=== PATIENT | female | born 1945 | race Caucasian/White ===

== ENCOUNTER 2017-09-20 15:46 | Emergency (ER) | payer MEDICARE, OTHER ==
[2017-09-20 15:59] VITALS: BP 157/73
[2017-09-20] MEDS ORDERED: PROPARACAINE 0.5% OPHTH DROPS 15 ML LEFTEYE STA (16:09)
--- NOTE | 2017-09-20 16:11 | ED Physician Documentation ---
History of Present Illness - Stated complaint Stated Complaint: EYELID RASH - Chief complaint Chief Complaint: Heent - Additonal information Additional information: hx from pt 72 female erythema and pain to to inner upper L eyelide X 4 days no trauma no contacts no vision changes called PMD and when she said the redness looked a bit blistered PMD advised to come to ED to rule out shingles Review of Systems Eyes: reports: Other (eyelid erythema) PD PAST MEDICAL HISTORY - Present Medications Home Medications: Ambulatory Orders Medication Instructions Recorded Confirmed Cephalexin [Keflex] 500 mg PO Q6H #28 capsule 09/20/17 Erythromycin Base [Erythromycin] 1 applic OP Q4H #1 tub 09/20/17 - Allergies Allergies/Adverse Reactions: Allergies Allergy/AdvReac Type Severity Reaction Status Date / Time No Known Drug Allergies Allergy Verified 09/20/17 15:53 PD ED PE NORMAL - Vitals Vital signs reviewed: Yes - HEENT HEENT: Other (upper medial L eyelife erythematous and swollen, no clear vesicle certainly no crusting, no rash to rest of dermatome, flourscein exam shows no deindrites) - Cardiac Cardiac: RRR - Respiratory Respiratory: No respiratory distress, Clear bilaterally Results - Vitals Vitals: Vital Signs - 24 hr 09/20/17 15:50 Temperature 36.8 C Heart Rate 71 Respiratory 16 Rate Blood Pressure 157/73 H O2 Saturation 97 Oxygen O2 Source Room air PD MEDICAL DECISION MAKING - Sepsis Event Vital Signs: Vital Signs - 24 hr 09/20/17 15:50 Temperature 36.8 C Heart Rate 71 Respiratory 16 Rate Blood Pressure 157/73 H O2 Saturation 97 Oxygen O2 Source Room air Departure - Departure Disposition: 01 Home, Self Care Clinical Impression: Eyelid cellulitis Qualifiers: Laterality: left Qualified Code(s): H00.036 - Abscess of eyelid left eye, unspecified eyelid Condition: Good Instructions: ED Infec Skin Cellulitis Prescriptions: Cephalexin [Keflex] 500 mg PO Q6H #28 capsule Erythromycin Base [Erythromycin] 1 applic OP Q4H #1 tub Comments: This does not look like shingles I think it is a bacterial infection Try the eye antibiotic ointment. If not better in 2 days or if worsening, start the oral antibiotics. If you develop lesions (blisters and scabs) to any other part of the left side of your head, then that could indicate this is shingles after all and so please come back to the ER for a recheck
== END 2017-09-20 16:48 | disposition home or self-care (01) ==
LOC: ED 15:46
DX: H00.036 Abscess of eyelid left eye, unspecified eyelid (principal)
CPT/HCPCS: 99283

== ENCOUNTER 2018-03-10 11:19 | Emergency (ER) | payer MEDICARE, OTHER ==
[2018-03-10 12:36] LABS: BASOPHILS # (AUTO) 0.1 10^3/uL (0.0-0.1); BASOPHILS % (AUTO) 0.6 %; EOSINOPHILS % (AUTO) 0.1 %; HGB - HEMOGLOBIN 14.8 g/dL (12.0-16.0); LYMPHOCYTES # (AUTO) 0.7 10^3/uL (1.5-3.5); LYMPHOCYTES % (AUTO) 5.6 %; MEAN CORPUSCULAR HEMOGLOBIN 29.3 pg (27.0-31.0); MEAN CORPUSCULAR HGB CONC 33.7 g/dL (32.0-36.0); MEAN CORPUSCULAR VOLUME 87.2 fL (81.0-99.0); MEAN PLATELET VOLUME 9.4 fL (7.9-10.8); MONOCYTES # (AUTO) 0.6 10^3/uL (0.0-1.0); MONOCYTES % (AUTO) 4.5 %; NEUTROPHILS # (AUTO) 11.5 10^3/uL (1.5-6.6); NEUTROPHILS % (AUTO) 89.2 %; PLT - PLATELET COUNT 206 10^3/uL (130-450); RED BLOOD COUNT 5.04 10^6/uL (4.20-5.40); RED CELL DISTRIBUTION WIDTH 13.2 % (12.0-15.0); WHITE BLOOD COUNT 12.9 x10^3/uL (4.8-10.8)
[2018-03-10 12:46] LABS: BILIRUBIN,URINE NEGATIVE (NEGATIVE); GLUCOSE, URINE (UA) NEGATIVE (NEGATIVE); KETONES,URINE (UA) TRACE mg/dL (NEGATIVE); LEUKOCYTE ESTERASE, URINE NEGATIVE (NEGATIVE); NITRITE,URINE NEGATIVE (NEGATIVE); OCCULT BLOOD,URINE NEGATIVE (NEGATIVE); PH,URINE 5.5 PH (5.0-7.5); PROTEIN,URINE TRACE mg/dL (NEGATIVE); UROBILINOGEN,URINE 0.2 (NORMAL) E.U./dL (NORMAL)
[2018-03-10 12:47] LABS: CLARITY,URINE CLEAR (CLEAR)
--- NOTE | 2018-03-10 12:47 | ED Physician Documentation ---
PD HPI ABD PAIN - Stated complaint Stated Complaint: ABD PX - Chief complaint Chief Complaint: Abd Pain - History obtained from History obtained from: Patient - History of Present Illness Timing - onset: Today Timing - duration: Days (1) Timing - details: Abrupt onset, Still present Quality: Cramping, Aching, Pain Location: Suprapubic, LLQ Radiation: Lower back. No: Chest, Left flank Improved by: No: Eating Worsened by: Moving, Palpation. No: Eating, Breathing Associated symptoms: Nausea, Constipation (mild but had taken some laxatives lately so looser BMs.). No: Fever, Diarrhea Similar symptoms before: Diagnosis (has had recurrent diverticulitis the past 2 1/2 months, with CT scans showing uncomplicated diverticulitis. Patient has been off most recent abx (does better on the abx) for several days to a week. was Augmentin, prior to that was floxin and flagyl? (She did not like not being able to have alcohol, just the glass of wine now and then).) Recently seen: Clinic Review of Systems Constitutional: reports: Myalgias. denies: Fever Nose: denies: Rhinorrhea / runny nose, Congestion Throat: denies: Sore throat Respiratory: denies: Cough GI: reports: Abdominal Pain, Nausea, Constipation. 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 - Present Medications Home Medications: Ambulatory Orders Medication Instructions Recorded Confirmed Cephalexin [Keflex] 500 mg PO Q6H #28 capsule 09/20/17 Erythromycin Base [Erythromycin] 1 applic OP Q4H #1 tub 09/20/17 Dexamethasone [Decadron] 4 mg PO DAILY #5 tablet 03/10/18 Docusate Sodium 100 mg PO DAILY #30 capsule 03/10/18 Hydrocodone/Acetaminophen [[place] 1 each PO Q6H PRN #15 tablet 03/10/18 5-325 Tablet] Moxifloxacin HCl 400 mg PO DAILY #14 tablet 03/10/18 Saccharomyces Boulardii [Florastor] 250 mg PO BID #20 capsule 03/10/18 - Allergies Allergies/Adverse Reactions: Allergies Allergy/AdvReac Type Severity Reaction Status Date / Time erythromycin base AdvReac Nausea Verified 03/10/18 11:52 [From Erythrocin] - Social History Does the pt smoke?: No Smoking Status: Never smoker Does the pt drink ETOH?: No Does the pt have substance abuse?: No - Immunizations Immunizations are current?: Yes - POLST Patient has POLST: No PD ED PE NORMAL - Vitals Vital signs reviewed: Yes - General General: Alert and oriented X 3, No acute distress, Well developed/nourished - HEENT HEENT: Pharynx benign - Neck Neck: Supple, no meningeal sign, No adenopathy - Cardiac Cardiac: RRR, No murmur - Respiratory Respiratory: Clear bilaterally - Abdomen Abdomen: Normal bowel sounds, Soft, Non distended, No organomegaly, Other (tender lower abd suprpubic and LLQ with local guarding but no generalized tenderness and no percussion tender) - Female Female : Deferred - Rectal Rectal: Deferred - Back Back: No CVA TTP - Derm Derm: Normal color, Warm and dry - Extremities Extremities: No edema, No calf tenderness / cord - Neuro Neuro: No motor deficit, Normal speech Results - Vitals Vitals: Vital Signs - 24 hr 03/10/18 03/10/18 11:44 13:51 Temperature 36.4 C L Heart Rate 77 72 Respiratory 18 16 Rate Blood Pressure 164/76 H 146/70 H O2 Saturation 98 98 Oxygen O2 Source Room air - Labs Labs: Laboratory Tests 03/10/18 03/10/18 03/10/18 12:21 12:21 12:21 WBC 12.9 H RBC 5.04 Hgb 14.8 Hct 43.9 MCV 87.2 MCH 29.3 MCHC 33.7 RDW 13.2 Plt Count 206 MPV 9.4 Neut # (Auto) 11.5 H Lymph # (Auto) 0.7 L [place] # (Auto) 0.6 Eos # (Auto) 0.0 Baso # (Auto) 0.1 Absolute Nucleated RBC 0.01 Nucleated RBC % 0.1 Sodium 139 Potassium 3.6 Chloride 103 Carbon Dioxide 25 Anion Gap 11.0 BUN 20 Creatinine 0.7 Estimated GFR (MDRD) 82 L Glucose 115 H Calcium 9.8 Total Bilirubin 0.6 AST 14 ALT 22 Alkaline Phosphatase 70 Total Protein 8.4 H Albumin 4.8 Globulin 3.6 Albumin/Globulin Ratio 1.3 Lipase 37 Urine Color YELLOW Urine Clarity CLEAR Urine pH 5.5 Ur Specific [place] 1.025 Urine Protein TRACE Urine Glucose (UA) NEGATIVE Urine Ketones TRACE Urine Occult Blood NEGATIVE Urine Nitrite NEGATIVE Urine Bilirubin NEGATIVE Urine Urobilinogen 0.2 (NORMAL) Ur Leukocyte Esterase NEGATIVE Ur Microscopic Review NOT INDICATED Urine Culture Comments NOT INDICATED PD MEDICAL DECISION MAKING - ED course Complexity details: considered differential (exam without peritoneal findings, but local findings. Shared decision to treat at recurrent diverticulitis and forego repeat imaging (had 2 CT recently and exam/symptoms are just the same).), d/w patient Departure - Departure Disposition: Home, Self Care Clinical Impression: Lower abdominal pain Diverticulitis large intestine Qualifiers: Diverticulitis bleeding: without bleeding Diverticulitis complication: without perforation or abscess Qualified Code(s): K57.32 - Diverticulitis of large intestine without perforation or abscess without bleeding Condition: Stable Record reviewed to determine appropriate education?: Yes Instructions: ED Diverticulitis Follow-Up: Evon Hudson MD [Primary Care Provider] - Prescriptions: Dexamethasone [Decadron] 4 mg PO DAILY #5 tablet Docusate Sodium 100 mg PO DAILY #30 capsule Hydrocodone/Acetaminophen [[place] 5-325 Tablet] 1 each PO Q6H PRN #15 tablet PRN Reason: Pain Moxifloxacin HCl 400 mg PO DAILY #14 tablet Saccharomyces Boulardii [Florastor] 250 mg PO BID #20 capsule Comments: Drink lots of fluids and stay well-hydrated. Decadron anti-inflammatory daily for 5 days. Moxifloxacin antibiotic daily for 2 weeks. Use some stool softener such as the centimeter on her alternatively docusate daily. No laxatives per se as it can be irritating of the intestine. You could add some probiotics to the regimen as that can help restore the intestinal jorge luis. Recheck if not improved over the next several days. Follow-up with your primary care subsequently. If you have persistent and on clearing infection, then a surgical option may be considered. Discharge Date/Time: 03/10/18 15:09
[2018-03-10 12:48] LABS: ALBUMIN 4.8 g/dL (3.2-5.5); ALBUMIN/GLOBULIN RATIO 1.3 (1.0-2.2); BILIRUBIN,TOTAL 0.6 mg/dL (0.2-1.0); CREATININE 0.7 mg/dL (0.4-1.0); TOTAL PROTEIN 8.4 g/dL (6.7-8.2)
[2018-03-10] MEDS ORDERED: cefTRIAXone 1 GM VIAL IVP STA (13:20)
[2018-03-10 13:23] LABS: CALCIUM 9.8 mg/dL (8.5-10.3)
[2018-03-10] MEDS ORDERED: KETOROLAC 30 MG/ML VIAL IVP STA (13:23)
[2018-03-10] MEDS ORDERED: MOXIFLOXACIN 400MG/250ML IV 400 MG/250 ML BAG IV SCH (13:40)
[2018-03-10 14:38] VITALS: BP 146/70
[2018-03-11] MEDS ORDERED: MOXIFLOXACIN 400MG/250ML IV 400 MG/250 ML BAG IV SCH (09:00)
== END 2018-03-10 15:09 | disposition home or self-care (01) ==
LOC: ED 11:19
DX: K57.32 Diverticulitis of large intestine without perforation or abscess without bleeding (principal)
CPT/HCPCS: 36415; 80053; 81001; 81003; 83690; 85025; 87086; 96365; 96375; 99283

== ENCOUNTER 2022-06-07 09:00 | Outpatient (CLI) | payer MEDICARE, OTHER ==
--- NOTE | 2022-06-07 12:11 | XRAY Report ---
PROCEDURE: Chest 2 View X-Ray INDICATIONS: CHEST CONGESTION/COUGH TECHNIQUE: 2 views of the chest were acquired. COMPARISON: None. FINDINGS: Surgical changes and devices: None. Lungs and pleura: No pleural effusions or pneumothorax. Lungs are clear. Diffuse chronic intersti tial changes Mediastinum: Mediastinal contours appear normal. Heart size is normal. Mild vascular congestion Bones and chest wall: No suspicious bony lesions. Overlying soft tissues appear unremarkable. IMPRESSION: Mild vascular congestion without cardiomegaly Reviewed by: Vic Chu MD on 06/07/2022 11:10 AM [facility] Approved by: Vic Chu MD on 06/07/2022 11:10 AM [facility] Station ID: [id number]
== END 2022-06-07 09:01 | disposition home or self-care (01) ==
LOC: DI.S 09:00
PROVIDERS: ATTEND Emergency Medicine
DX: R06.02 Shortness of breath (principal); I87.8 Other specified disorders of veins

== ENCOUNTER 2022-09-23 23:04 | Emergency (ER) | payer MEDICARE ==
[2022-09-23 23:15] VITALS: BP 150/80; O2SAT 95
--- NOTE | 2022-09-24 00:07 | ED Physician Documentation ---
PD HPI OPHTHO - Stated complaint Stated Complaint: R EYE PX - Chief complaint Chief Complaint: Heent - History obtained from History obtained from: Patient - Additional information Additional information: The patient comes to the emergency department with chief complaint of right upper eyelid pain, swelling, and redness, as well as irritation of the surface of her eye, that started yesterday. She does not wear any contacts. She states that she thinks it is a stye because it seems swollen, but she has been applying hot compresses and does not seem to have helped. She is noticing mucousy discharge out of her eye. 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 - Present Medications Home Medications: Ambulatory Orders Medication Instructions Recorded Confirmed Erythromycin Base [Erythromycin] 1 applic OP Q4H #1 tub 09/20/17 cephALEXin [Keflex] 500 mg PO Q6H #28 capsule 09/20/17 Docusate Sodium 100 mg PO DAILY #30 capsule 03/10/18 Hydrocodone/Acetaminophen [[place] 1 each PO Q6H PRN #15 tablet 03/10/18 5-325 Tablet] Moxifloxacin HCl 400 mg PO DAILY #14 tablet 03/10/18 Saccharomyces Boulardii [Florastor] 250 mg PO BID #20 capsule 03/10/18 dexAMETHasone [Decadron] 4 mg PO DAILY #5 tablet 03/10/18 Gentamicin 0.3% Ophth Drops 1 drops OPTH BID #5 ml 09/24/22 [Garamycin] - Allergies Allergies/Adverse Reactions: Allergies Allergy/AdvReac Type Severity Reaction Status Date / Time erythromycin base AdvReac Nausea Verified 09/23/22 23:08 [From Erythrocin] - Social History Does the pt smoke?: No Smoking Status: Never smoker Does the pt drink ETOH?: No Does the pt have substance abuse?: No - Immunizations Immunizations are current?: Yes - POLST Patient has POLST: No PD ED PE NORMAL - Vitals Vital signs reviewed: Yes - General General: Alert and oriented X 3, No acute distress, Well developed/nourished - HEENT HEENT: Atraumatic, PERRL, EOMI, Other (Moderately injected right eye with some mucopurulent discharge. Negative fluorescein exam. Lateral upper eyelid is tender and a small erosion noted on the tarsal edge. No induration or mass to indicate stye.) - Neck Neck: Supple, no meningeal sign - Respiratory Respiratory: No respiratory distress - Derm Derm: Normal color, Warm and dry, No rash - Extremities Extremities: No deformity - Neuro Neuro: Alert and oriented X 3 - Psych Psych: Normal mood, Normal affect Results - Vitals Vitals: Vital Signs - 24 hr 09/23/22 23:08 Temperature 36.5 C Heart Rate 90 Respiratory 16 Rate Blood Pressure 150/80 H O2 Saturation 95 Oxygen O2 Source Room air PD Medical Decision Making - ED course Complexity details: considered differential, d/w patient, d/w family ED course: I discussed with the patient that she appears to have a conjunctivitis, but I really do not find evidence of a stye at this time. I will start her on topical antibiotic drops. We have discussed treatment for stye, should 1 develop, which is hot compresses. The patient does not wear contacts. I discussed with her that if she is still having problems after finishing the course of antibiotic drops, she should see her physiognomist, with whom she is already established. We have discussed the usual indications for return. Departure - Departure Disposition: Home, Self Care Clinical Impression: Conjunctivitis Qualifiers: Conjunctivitis type: acute Acute conjunctivitis type: unspecified Laterality: right Qualified Code(s): H10.31 - Unspecified acute conjunctivitis, right eye Condition: Stable Instructions: ED Conjunctivitis Nonspecific Prescriptions: Gentamicin 0.3% Ophth Drops [Garamycin] 1 drops OPTH BID #5 ml Comments: The surface of your eye is inflamed and irritated, with drainage, which indicates an infection of the surface of your eye. Your eyelid edge is raw and tender, but there is no distinct lump to indicate a clogged duct as is the case with a stye. It will not hurt your eye to do that compresses, although right now, the focus of treatment is to clear up the infection in your eye. If you do develop a firm lump, this would be indicative of a stye, and the treatment for this is hot compresses several times a day. In general, styes will take a couple of weeks to resolve and generally do not require antibiotics. If you get through the course of eyedrops and are still having issues, please follow-up with your physiognomist. The prescription for your antibiotic drops has been electronically transmitted to the [facility] pharmacy in [place] at your request. Forms: PCP List Discharge Date/Time: 09/24/22 00:17
== END 2022-09-24 00:17 | disposition home or self-care (01) ==
LOC: ED 23:04
DX: H10.31 Unspecified acute conjunctivitis, right eye (principal)
CPT/HCPCS: 99282; 99283

== ENCOUNTER 2024-07-25 20:16 | Observation (INO) ==
--- NOTE | 2024-07-25 20:18 | ED Physician Documentation ---
History of Present Illness Stated complaint Stated Complaint: STROKE-LIKE SYMP Chief complaint Chief Complaint: Neuro History obtained from History obtained from: Patient Additonal information Additional information: This is a relatively healthy 79-year-old woman visiting from [place]. At 1915 tonight she developed some speech difficulties, specifically word finding difficulties. He was not associated with any other focal neurologic defects. Prehospital blood sugar 122, prehospital blood pressure 170/100 or so drifting towards normal on serial checks and EMS tells me she has had some improvement in her speaking. Meds/Allgy Home Medications Ambulatory Orders Medication Instructions Recorded Confirmed cephalexin 500 mg capsule (Keflex) 500 mg PO Q6H ##28 09/20/17 erythromycin 5 mg/gram (0.5 %) eye 1 applic ophthalmic (eye) Q4H ##1 09/20/17 ointment Saccharomyces boulardii 250 mg 250 mg PO BID ##20 02/17 05/04 capsule (Florastor) dexamethasone 4 mg tablet 4 mg PO DAILY #5 tabs docusate sodium 100 mg capsule 100 mg PO DAILY ##30 hydrocodone 5 mg-acetaminophen 325 1 ea PO Q6H PRN Shay n #15 tabs 03/10/18 mg tablet ([place]) moxifloxacin 400 mg tablet 400 mg PO DAILY #14 tabs gentamicin 0.3 % eye drops 1 drp OPTH BID #5 mL Allergies Allergies Allergy/AdvReac Type Severity Reaction Status Date / Time erythromycin base (From AdvReac Nausea Verified 07/25/24 20:40 Erythrocin) PFSH Active Problems All Active Problems (Updated 07/25/24 @ 21:19 by Alexis Mello MD) Brain TIA (Acute) Social History Social History Smoking Status: Never smoker Do you feel safe in your home environment?: Yes Suffered physical, verbal, emotional, or financial abuse?: No History of Abuse: No Exam Exam Vital Signs: Vital Signs x48h Temp Pulse Resp BP Pulse Ox 07/25/24 20:34 36.5 C 73 18 151/59 H 95 Constitutional normal general appearance and no apparent distress Results Vitals Vitals: Vital Signs - 24 hr 07/25/24 20:34 Temperature 36.5 C Temperature Source Tympanic Pulse Rate 73 Respiratory Rate 18 Blood Pressure 151/59 H O2 Saturation 95 O2 Source Room air Pain Intensity 0 Oxygen O2 Source Room air EKG (time done) 2029: EKG releavant findings:: EKG personally interpreted by author of this note. Relevant findings are: Normal sinus rhythm with rate of 72. No ST elevation or depression. Overall this is a normal EKG. Labs Labs: Laboratory Tests 07/25/24 20:47 WBC 7.3 RBC 3.90 L Hgb 11.8 L Hct 33.7 L MCV 86.4 MCH 30.3 MCHC 35.0 RDW 12.2 Plt Count 209 MPV 9.4 Neut # (Auto) 5.0 Lymph # (Auto) 1.2 L [place] # (Auto) 0.9 Eos # (Auto) 0.1 Baso # (Auto) 0.0 Absolute Nucleated RBC 0.00 Nucleated RBC % 0.0 PT 11.1 INR 1.0 Sodium 125 L Potassium 3.7 Chloride 93 L Carbon Dioxide 25 Anion Gap 7.0 BUN 20 Creatinine 1.1 Estimated GFR (MDRD) 48 L Glucose 119 H Calcium 8.8 Total Bilirubin 0.4 AST 14 ALT 12 Alkaline Phosphatase 49 Total Protein 6.4 Albumin 4.2 Globulin 2.2 Albumin/Globulin Ratio 1.9 Lipase 55 Rads (name of study) CTA of the head and neck was unremarkable save for mild enlargement of the thyroid.: Relevant Findings:: Final report received and EMP independent interpretation of test PD Medical Decision Making ED course ED course: 79-year-old woman presents with strokelike symptoms. That said her NIH stroke scale is only 1 and she has improved en route. Wet read of Noncon CT was negative per Dr. Oakes who called me at about 8:[address] Burnette telestroke neuro at 840pm. I reevaluated her 845 and her symptoms had pretty much resolved. She does not take aspirin. Her only relevant medication it would be pravastatin. I E no blood thinners or antihypertensives. Spoke with Dr. Barker of telestroke again at 2111. She is back to baseline per Dr. Barker and recommends no TNK. Does recommend observation overnight with aspirin (no Plavix). Patient agreeable to this plan. Telestroke telehospitalist consult placed at 2118. The patient and family are counseled as to the diagnosis and need for admission. This document was made in part using voice recognition software, while efforts are made to proofread this document, sound alike an grammatical errors may occur. Discharge Plan Discharge Patient Disposition: ED Place in Observation Condition: Stable Clinical Impression: Brain TIA Prescriptions: No Action cephalexin [Keflex] 500 MG capsule 500 mg PO Q6H Qty: 28 0RF Rx Instructions: recommned taking a probiotic or eating yogurt with cultures to prevent antibiotic associated diarrhea erythromycin 1 GM ointment 1 applic ophthalmic (eye) Q4H Qty: 1 0RF Rx Instructions: every four hours while awake for one week or until better hydrocodone-acetaminophen [[place]] 1 EACH tablet 1 ea PO Q6H PRN (Reason: Pain) Qty: 15 0RF dexamethasone 4 MG tablet 4 mg PO DAILY Qty: 5 0RF moxifloxacin 400 MG tablet 400 mg PO DAILY Qty: 14 0RF docusate sodium 100 MG capsule 100 mg PO DAILY Qty: 30 0RF Saccharomyces boulardii [Florastor] 250 MG capsule 250 mg PO BID Qty: 20 0RF gentamicin 75 DROPS/5 ML drops 1 drp OPTH BID Qty: 5 0RF Print Language: [place] Stand Alone Forms: PCP List NIHSS Time 2015: Time: 20:17 Level of Consciousness Level of consciousness: (0) Alert, Keenly responsive LOC Questions: (0) Answers both Q's correct LOC Commands: (0) Performs both correctly Gaze Best Gaze: (0) Normal Visual Visual: (0) No loss Facial Palsy Facial Palsy: (0) Normal, symmetrical movement Motor Arms (both separate) Motor Arm (right): (0) No drift Motor Arm (left): (0) No drift Motor Legs (both separate) Motor Leg (right): (0) No drift Motor Leg (left): (0) No drift Limb Ataxia Limb Ataxia: (0) Absent Sensory Sensory: (0) Normal Best Language Best Language: (1) [id number] Dysarthria Dysarthria: (0) Normal Extinction and Inattention (formally neg Extinction and inattention: (0) No abnormality Total Score/Results Total Score/Result: 1
[2024-07-25] MEDS ORDERED: iohexoL-300 100 ML VIAL ONE (20:22)
[2024-07-25] MEDS: iohexoL-300 100 ML VIAL IVP ONE (20:36)
--- NOTE | 2024-07-25 20:40 | CT Report ---
PROCEDURE: CT Head W/O Stroke Protocol INDICATIONS: Neuro deficit, acute, stroke suspected TECHNIQUE: Noncontrast angled axial sections acquired from the foramen magnum to the vertex, with coronal reformats. For radiation dose reduction, the following was used: automated exposure control, adjustment of mA and/or kV according to patient size. COMPARISON: None. FINDINGS: Image quality: Excellent. CSF spaces: Basal cisterns are patent. No extra-axial fluid collections. Ventricles are normal in size and shape. Brain: No midline shift. No intracranial mass effect or hemorrhage. [place]- white matter interface is normal. Skull and face: Calvarium and visualized facial bones are intact, without suspicious lesions. Sinuses: Visualized sinuses and mastoids are clear. IMPRESSION: No acute intracranial pathology Findings discussed with Dr. Zamorano at 2038 hours. This study fulfills neurological imaging criteria for inclusion or exclusion of acute stroke therapies based on available published neurological imaging guidelines. Reviewed by: Felicity Oakes MD on 07/25/2024 8:38 PM PDT Approved by: Felicity Oakes MD on 07/25/2024 8:38 PM PDT Station ID: [id number]
[2024-07-25 20:52] LABS: BASOPHILS % (AUTO) 0.4 %; EOSINOPHILS # (AUTO) 0.1 10^3/uL (0.0-0.7); EOSINOPHILS % (AUTO) 1.6 %; HCT - HEMATOCRIT 33.7 % (37.0-47.0); HGB - HEMOGLOBIN 11.8 g/dL (12.0-16.0); LYMPHOCYTES # (AUTO) 1.2 10^3/uL (1.5-3.5); LYMPHOCYTES % (AUTO) 16.9 %; MEAN CORPUSCULAR HEMOGLOBIN 30.3 pg (27.0-31.0); MEAN CORPUSCULAR VOLUME 86.4 fL (81.0-99.0); MEAN PLATELET VOLUME 9.4 fL (7.9-10.8); MONOCYTES # (AUTO) 0.9 10^3/uL (0.0-1.0); MONOCYTES % (AUTO) 11.9 %; NEUTROPHILS % (AUTO) 68.9 %; PLT - PLATELET COUNT 209 10^3/uL (130-450); RED CELL DISTRIBUTION WIDTH 12.2 % (12.0-15.0); WHITE BLOOD COUNT 7.3 x10^3/uL (4.8-10.8)
[2024-07-25 21:03] LABS: PT - PROTHROMBIN TIME 11.1 secs (9.9-12.6)
[2024-07-25 21:08] LABS: ALBUMIN 4.2 g/dL (3.2-5.5); ALBUMIN/GLOBULIN RATIO 1.9 (1.0-2.2); BILIRUBIN,TOTAL 0.4 mg/dL (0.2-1.0); CALCIUM 8.8 mg/dL (8.5-10.3); CREATININE 1.1 mg/dL (0.6-1.3); POTASSIUM 3.7 mmol/L (3.5-4.5); TOTAL PROTEIN 6.4 g/dL (6.4-8.9)
--- NOTE | 2024-07-25 21:09 | CT Report ---
PROCEDURE: CT Angio Head/Neck INDICATIONS: cva sx CONTRAST: 80 ml omni 300 iv TECHNIQUE: After the administration of intravenous contrast, images werenacquired from the aortic arch through the [place]. 3-dimensional juzmqiw-oywqbwsng-elqdlnwvpj (MIP) and volume rendering reformats were acquired of the central intracranial vasculature and neck separately. COMPARISON: None. FINDINGS: Image quality: Diagnostic. Cerebral CT Angiogram: Internal carotid arteries: No acute findings. Intracranial ICA are patent with no significant stenosis. No occlusion. No aneurysm. Anterior cerebral arteries: Unremarkable. No significant stenosis. No occlusion. No aneurysm. Middle cerebral arteries: Unremarkable. No significant stenosis. No occlusion. No aneurysm. Posterior cerebral arteries: Unremarkable. No significant stenosis. No occlusion. No aneurysm. Basilar artery: Unremarkable. No significant stenosis. No occlusion. No aneurysm. Vertebral arteries: Unremarkable as visualized. Dural venous sinuses: Unremarkable given phase of enhancement. Other: Arterial phase appearance of the brain parenchyma is unremarkable. Neck CT Angiogram: Internal carotid arteries: Unremarkable. No significant stenosis. No dissection or occlusion. Common carotid arteries: Unremarkable. No significant stenosis. No dissection or occlusion. External carotid arteries: Unremarkable. No occlusion. Vertebral arteries: Unremarkable. No significant stenosis. No dissection or occlusion. Aortic Arch and Mediastinum: Partially visualized aortic arch unremarkable without evidence of aneurysm. Origins of the great vessels demonstrate normal variant bovine arch anatomy and are otherwise widely patent.. Other: Mildly enlarged thyroid gland with nodules of varying sizes bilaterally. Arterial phase soft tissues of the neck and chest are unremarkable. IMPRESSION: Unremarkable CT angiogram of the head and neck Recommend thyroid ultrasound for further evaluation. The estimate of stenosis included in the report of the imaging study was calculated using the NASCET method Reviewed by: Felicity Oakes MD on 07/25/2024 9:08 PM PDT Approved by: Felicity Oakes MD on 07/25/2024 9:08 PM PDT Station ID: [id number]
[2024-07-25] MEDS ORDERED: HYDROcod/ACETAM 5/325 MG TABLET PO PRN (22:14)
--- NOTE | 2024-07-25 22:17 | HISTORY & PHYSICAL EXAMINATION ---
History of Present Illness History of Present Illness HPI Comment/Other: This is a 79 yo female with pmhx of hypothyroidism who presented to with dysarthria, and speech difficulty and therefore presented to ER. Pt denied sob, cough, chest pain, sob, LH or dizziness, no weakenss, no numbness or tingling. Labs showed significant for na 125. CT head and CTA h/n neg for acute findings. Tele neuro in ER recommended admission for further workup, did not recommend tPA given symptoms improved in ER. Review of Systems per hpi PFSH Active Problems All Active Problems (Updated 07/25/24 @ 22:28 by Olena Puga DO) Dysarthria (Acute) Brain TIA (Acute) Social History Social History Smoking Status: Never smoker Do you feel safe in your home environment?: Yes Suffered physical, verbal, emotional, or financial abuse?: No History of Abuse: No POLST Patient has POLST: No Meds/Allgy Home Medications Ambulatory Orders Medication Instructions Recorded Confirmed cephalexin 500 mg capsule (Keflex) 500 mg PO Q6H ##28 09/20/17 erythromycin 5 mg/gram (0.5 %) eye 1 applic ophthalmic (eye) Q4H ##1 09/20/17 ointment Saccharomyces boulardii 250 mg 250 mg PO BID ##20 02/17 05/04 capsule (Florastor) dexamethasone 4 mg tablet 4 mg PO DAILY #5 tabs docusate sodium 100 mg capsule 100 mg PO DAILY ##30 hydrocodone 5 mg-acetaminophen 325 1 ea PO Q6H PRN Shay n #15 tabs 03/10/18 mg tablet ([place]) moxifloxacin 400 mg tablet 400 mg PO DAILY #14 tabs gentamicin 0.3 % eye drops 1 drp OPTH BID #5 mL Allergies Allergies Allergy/AdvReac Type Severity Reaction Status Date / Time erythromycin base (From AdvReac Nausea Verified 07/25/24 20:40 Erythrocin) Exam Exam Vital Signs: Vital Signs x48h Temp Pulse Resp BP Pulse Ox 07/25/24 20:34 36.5 C 73 18 151/59 H 95 GEN: Alert and cooperative, no distress HEENT: atraumatic, normocephalic, MMM PULM: CTABL, reg rate and pattern, no distress CV: RRR, no edema GI: soft, nontender, nondistended, normoactive bowel sounds MSK: no edema, MAEW SKIN: c/d/I NEURO: AOx4, no focal deficits Conclusion/Plan Problem List (1) Dysarthria: (2) Brain TIA: Plan #dysarthria and #speech difficulties -permissive htn -trend labs -IVFs -follow I&Os -monitor on tele -check echo -lipid panel -asa/statin -pain control -antiemetics -mri brain w/o contrast The patient gave verbal consent to receive this telemedicine service, which I performed via live two-way audio/visual equipment. The patient is at [facility], and I am physically in [place]. Other participants include spouse at bedside. Lab Results Lab results reviewed: Yes 07/25/24 20:47 07/25/24 20:47 Diagnostic Imaging Results Diagnostic Imaging Results: positive Final report reviewed
[2024-07-25] MEDS ORDERED: ACETAMINOPHEN 325 MG TABLET PO PRN (22:27)
[2024-07-25] MEDS ORDERED: ONDANSETRON 4 MG/2 ML VIAL IVP PRN (22:27)
[2024-07-26] MEDS: ASPIRIN CHEW 81 MG TABLET PO STA ×2 (01:13→01:20)
[2024-07-26] MEDS: SODIUM CHLORIDE 0.9% 1,000 ML IV SCH (02:08)
[2024-07-26 05:10] LABS: BASOPHILS % (AUTO) 0.4 %; EOSINOPHILS # (AUTO) 0.2 10^3/uL (0.0-0.7); EOSINOPHILS % (AUTO) 1.9 %; HCT - HEMATOCRIT 32.8 % (37.0-47.0); HGB - HEMOGLOBIN 11.6 g/dL (12.0-16.0); LYMPHOCYTES # (AUTO) 1.4 10^3/uL (1.5-3.5); LYMPHOCYTES % (AUTO) 18.3 %; MEAN CORPUSCULAR HEMOGLOBIN 30.6 pg (27.0-31.0); MEAN CORPUSCULAR HGB CONC 35.4 g/dL (32.0-36.0); MEAN CORPUSCULAR VOLUME 86.5 fL (81.0-99.0); MEAN PLATELET VOLUME 9.7 fL (7.9-10.8); MONOCYTES # (AUTO) 0.8 10^3/uL (0.0-1.0); MONOCYTES % (AUTO) 10.4 %; NEUTROPHILS # (AUTO) 5.4 10^3/uL (1.5-6.6); NEUTROPHILS % (AUTO) 68.7 %; PLT - PLATELET COUNT 199 10^3/uL (130-450); RED BLOOD COUNT 3.79 10^6/uL (4.20-5.40); RED CELL DISTRIBUTION WIDTH 12.1 % (12.0-15.0); WHITE BLOOD COUNT 7.9 x10^3/uL (4.8-10.8)
[2024-07-26 05:25] LABS: ALBUMIN 3.9 g/dL (3.2-5.5); ALBUMIN/GLOBULIN RATIO 1.8 (1.0-2.2); BILIRUBIN,TOTAL 0.4 mg/dL (0.2-1.0); CALCIUM 8.6 mg/dL (8.5-10.3); CREATININE 0.9 mg/dL (0.6-1.3); POTASSIUM 4.1 mmol/L (3.5-4.5); TOTAL PROTEIN 6.1 g/dL (6.4-8.9)
[2024-07-26] MEDS: ENOXAPARIN 40 MG/0.4 ML SYRINGE SUBQ SCH (09:10)
[2024-07-26] MEDS: ASPIRIN CHEW 81 MG TABLET PO SCH (09:11)
[2024-07-26] MEDS: SODIUM CHLORIDE 1 GM TABLET PO SCH (09:11)
--- NOTE | 2024-07-26 12:13 | MRI Report ---
PROCEDURE: MRI Brain WO INDICATIONS: rule out cva TECHNIQUE: Multiplanar multisequential MR images of the brain were obtained without contrast COMPARISON: None FINDINGS: CSF Spaces: Basal cisterns are patent. No extra-axial fluid collections. Ventricles are normal in size and shape. Brain: No intracranial masses or hemorrhage. Rolbedo/white matter interface is normal. Brainstem appears normal. Diffusion-weighted images shows no evidence of acute infarct. Normal intravascular flow voids are present. Moderate atrophy and white matter chronic ischemic change Skull and face: Calvarium has normal marrow signal. Orbits appear normal. Incidental hyperostosis frontalis interna noted. Bilateral intraocular lens replacements noted. Sinuses: Sinuses and mastoids are clear. IMPRESSION: Moderate atrophy and white matter chronic ischemic change without acute hemorrhage, infarct or mass lesion. Reviewed by: Vic Chu MD on 07/26/2024 11:12 AM [facility] Approved by: Vic Chu MD on 07/26/2024 11:12 AM [facility] Station ID: [id number]
[2024-07-26 13:20] VITALS: BP 150/65; TEMP 97.7; O2SAT 98
--- NOTE | 2024-07-26 13:38 | Discharge Summary ---
Discharge Summary Admit Date: 07/25/24 Discharge Date: 07/26/24 Discharging Provider: Marin Sims Primary Care Provider: [id number] PCP Code Status: Attempt Resuscitation DIAGNOSES Admission Diagnoses: Dysarthria TIA Discharge Diagnoses with Status of Each Condition: Dysarthriaresolved TIAresolved Hyponatremiaresolved, discharging on oral sodium HPI History of Present Illness: This is a 79 yo female with pmhx of hypothyroidism who presented to with dysarthria, and speech difficulty and therefore presented to ER. Pt denied sob, cough, chest pain, sob, LH or dizziness, no weakenss, no numbness or tingling. Labs showed significant for na 125. CT head and CTA h/n neg for acute findings. Tele neuro in ER recommended admission for further workup, did not recommend tPA given symptoms improved in ER. HOSPITAL COURSE Hospital Course: Patient was held in observation and started on IV and oral saline. Hyponatremia is resolved. Her symptoms resolved in the ER, and her MRI brain showed no acute infarct. Echocardiogram was performed, but read is not yet available. All of her symptoms have resolved, and she is ambulating independently. She is being discharged home and instructed to follow-up with PCP regarding her sodium levels and further stroke prevention ALLERGIES Allergies Allergy/AdvReac Type Severity Reaction Status Date / Time erythromycin base (From AdvReac Nausea Verified 07/25/24 20:40 Erythrocin) MEDICATIONS Ambulatory Orders Medication Instructions Recorded Confirmed erythromycin 5 mg/gram (0.5 %) eye 1 applic ophthalmic (eye) Q4H ##1 09/20/17 ointment Saccharomyces boulardii 250 mg 250 mg PO BID ##20 02/17 05/04 capsule (Florastor) docusate sodium 100 mg capsule 100 mg PO DAILY ##30 hydrocodone 5 mg-acetaminophen 325 1 ea PO Q6H PRN Shay n #15 tabs 03/10/18 mg tablet ([place]) gentamicin 0.3 % eye drops 1 drp OPTH BID #5 mL aspirin 81 mg tablet,delayed 81 mg PO DAILY #30 tabs 0 07/26/24 release atorvastatin 40 mg tablet 80 mg (2 x 40 mg) PO QPM 30 days 07/26/24 #60 tabs sodium chloride 1,000 mg soluble 1,000 mg PO DAILY #30 tabs 07/26/24 tablet PHYSICAL EXAM AT DISCHARGE Vital Signs: Vital Signs x48h Temp Pulse Resp BP Pulse Ox 07/26/24 13:19 36.5 C 66 18 150/65 H 98 General Appearance: positive No acute distress and Alert Eyes Bilateral: positive Normal inspection ENT: positive ENT inspection nml Neck: positive Nml inspection Respiratory: positive Chest non-tender and No respiratory distress Cardiovascular: positive Regular rate & rhythm Peripheral Pulses: positive 2+ Abdomen: positive Non-tender Skin: positive Color nml Extremities: positive Non-tender Neurologic/Psychiatric: positive Oriented x3 LABS 07/26/24 05:04 07/26/24 12:50 FOLLOW UP Follow Up: With PCP TIME SPENT Time Spent in Discharge (Minutes): 40 Discharge Plan Discharge Patient Disposition: Home, Self Care Condition: Stable Medically Cleared Date:: 07/26/24 Prescriptions: New atorvastatin 40 mg Tablet 80 mg PO QPM 30 Days Qty: 60 0RF sodium chloride 1,000 mg Tablet,Soluble 1,000 mg PO DAILY Qty: 30 0RF aspirin 81 mg tablet,delayed release (DR/EC) 81 mg PO DAILY Qty: 30 2RF Continued erythromycin 1 GM ointment 1 applic ophthalmic (eye) Q4H Qty: 1 0RF Rx Instructions: every four hours while awake for one week or until better hydrocodone-acetaminophen [[place]] 1 EACH tablet 1 ea PO Q6H PRN (Reason: Pain) Qty: 15 0RF docusate sodium 100 MG capsule 100 mg PO DAILY Qty: 30 0RF Saccharomyces boulardii [Florastor] 250 MG capsule 250 mg PO BID Qty: 20 0RF gentamicin 75 DROPS/5 ML drops 1 drp OPTH BID Qty: 5 0RF Discontinued cephalexin [Keflex] 500 MG capsule 500 mg PO Q6H Qty: 28 0RF Rx Instructions: recommned taking a probiotic or eating yogurt with cultures to prevent antibiotic associated diarrhea dexamethasone 4 MG tablet 4 mg PO DAILY Qty: 5 0RF moxifloxacin 400 MG tablet 400 mg PO DAILY Qty: 14 0RF Diet: Regular Interventions: Discharge Last Done: 07/26/24 14:25 Discharge Checklist - Nursing Last Done: 07/26/24 14:25 Health Concerns: You came into the hospital with difficulty speaking. We were concerned that you are having a stroke, so you underwent CT head which was negative for stroke. We also had you undergo an MRI which showed moderate atrophy, white matter chronic ischemic change without acute hemorrhage, infarct, lesion. These are all chronic changes, not reflective of an acute stroke. You had an echocardiogram done, the results are not yet available. You also had low sodium, which corrected with IV and oral sodium. Your difficulty speaking could be due to the low sodium or it could be due to a transient ischemic attack, sometimes known as a mini stroke. This is a ischemic event in your brain that resolved prior to any imaging being done. It is a risk factor for stroke, so I am sending you home with some medications that will reduce your risk. I would like for you to take a baby aspirin once a day. You can take this [id number] or fill the prescription that I wrote depending on which is easier and cheaper. I am also starting you on atorvastatin which also helps reduce your stroke risk. I am writing you for some salt tabs, I would like for you to continue taking these for short duration. Please follow-up with your primary care provider. Print Language: Kiswahili Patient Instructions: Hyponatremia Dc, TIA Dc Stand Alone Forms: PCP List
--- NOTE | 2024-07-26 16:53 | ECHO Report ---
Version: 1 Study ID: [id number] Adult Echocardiogram Report Name: VEE FORD Study Date: 07/26/2024, 9: 47 AM BP: 133 / 64 mmHg Patient Location: [facility]^2202^01 HR: 55 bpm : 1945 (MM/DD/YYYY) Gender: Female Height: 63 in Age: 79 Years Weight: 163.142 lb Reason For Study: tia/cva admission History: TIA Procedure: A complete two-dimensional transthoracic echocardiogram was performed (2D, M- mode, Doppler and color flow Doppler). Indication: Evaluate for source of embolism. Agitated saline study performed. The study was done with the patient in the supine position, due to inability to lie on the left side. The underlying rhythm was bradycardia. Interpretation Summary 1. The left ventricle is normal in size. There is normal left ventricular wall thickness. Global left ventricular systolic function is normal. Ejection fraction 60-65%. 2. The right ventricle is normal in size and function. 3. No significant valvular disease. Left Ventricle: The left ventricle is normal in size. There is normal left ventricular wall thickness. Global left ventricular systolic function is normal. The visual left ventricular ejection fraction is estimated at 60 to 65%. No regional wall motion abnormalities are present. Right Ventricle: The right ventricle is normal in size and function. Aortic Valve: The aortic valve is trileaflet. The aortic valve is mildly thickened. Aortic valve sclerosis is present without stenosis. Mild aortic regurgitation is present. Mitral Valve: The mitral valve leaflets appear thickened, but with normal motion. No evidence of mitral stenosis is seen. There is trace mitral regurgitation. Tricuspid Valve: The tricuspid valve is normal in structure and function. Mild tricuspid regurgitation present. Pulmonic Valve: The pulmonic valve is normal in structure and function. Trace pulmonic valvular regurgitation is present. Left Atrium: The left atrium is mildly dilated. The left atrial volume indexed to body surface area is 39 ml/m2. This refers to the maximal volume measured prior to mitral valve opening. Right Atrium: Right atrial size is normal. The inferior vena cava is normal in diameter (<2.1cm) but collapse <50% with sniff (estimated right atrial pressure 5-10mmHg). Atrial Septum: The interatrial septum is intact with no evidence for an atrial septal defect. Injection of agitated saline documented no interatrial shunt. Lipomatous hypertrophy of the interatrial septum is present. Aorta: The diameter of the ascending aorta is 3.7 cm. The aortic annulus measures 3.8cm in diameter. Pulmonary Artery: The pulmonary artery systolic pressure, calculated from a peak tricuspid regurgitant velocity in conjunction with an estimated right atrial pressure, is 26 - 31mmHg. Pericardium/Pleural Space: There is no pericardial effusion. CPT Codes: 09045/[id number]: Transthoracic Echo with Spectral and Color Doppler. Doppler Measurements & Calculations AI max P.6 mmHg AI max sherry: 398.8 cm/sec Ao max P.3 mmHg Ao V2 max: 135.4 cm/sec LV V1 max: 124.7 cm/sec LV V1 max P.2 mmHg LV V1 mean: 89.2 cm/sec LV V1 mean P.6 mmHg LV V1 VTI: 30.7 cm MV A max sherry: 75.9 cm/sec MV dec time: 0.18 sec MV DVI-pr: 1.03 MV E max sherry: 72.1 cm/sec PA max P.1 mmHg PA V2 max: 87.4 cm/sec RAP systole: 10.0 mmHg TR max P.1 mmHg TR max sherry: 229.9 cm/sec MMode/2D Measurements & Calculations Ao root diam: 3.8 cm EDV(MOD-sp4): 68.7 ml EF (est.): 51.6 % ESV(MOD-sp4): 34.4 ml ESV(sp4-el): 70.0 ml Heart Rate: 55.0 BPM Height (metric): 160.0 cm IVSd: 0.86 cm LA A4C-A/L: 21.8 cm² LA dimension: 5.6 cm LA ESV-A/L: 64.2 ml LAV(MOD-sp2): 61.5 ml LAV(MOD-sp4): 64.7 ml LVIDd: 4.3 cm LVIDs: 3.2 cm LVLd ap4: 7.7 cm LVLs ap4: 6.6 cm LVPWd: 0.90 cm Systolic Pressure: 133.0 mmHg TAPSE: 2.22 cm Other Measurements & Calculations AI max P.6 mmHg AI max sherry: 398.8 cm/sec Ao root diam: 3.8 cm Ao V2 max: 135.4 cm/sec BMI: 28.9 kilograms/m² BSA: 1.77 m² BSA([facility]): 1.84 m² Diastolic Pressure: 64.0 mmHg EDV(MOD-sp4): 68.7 ml EDV(Teich): 85.1 ml EF (est.): 51.6 % EF(MOD-sp4): 50.0 % EF(Teich): 52.8 % ESV(MOD-sp4): 34.4 ml ESV(sp4-el): 70.0 ml ESV(Teich): 40.2 ml FS: 26.9 % Heart Rate: 55.0 BPM Height (metric): 160.0 cm IVSd: 0.86 cm LA A4C-A/L: 21.8 cm² LA dimension: 5.6 cm LA ESV-A/L: 64.2 ml LAV(MOD-sp2): 61.5 ml LAV(MOD-sp4): 64.7 ml LV V1 max: 124.7 cm/sec LV V1 mean: 89.2 cm/sec LV V1 mean P.6 mmHg LVIDd: 4.3 cm LVIDs: 3.2 cm LVLd ap4: 7.7 cm LVLs ap4: 6.6 cm LVPWd: 0.90 cm MV A max sherry: 75.9 cm/sec MV dec time: 0.18 sec MV DVI-pr: 1.03 MV E max sherry: 72.1 cm/sec MV E/A: 0.95 PA max P.1 mmHg PA V2 max: 87.4 cm/sec RAP systole: 10.0 mmHg RVSP(TR): 31.1 mmHg SV(MOD-sp4): 34.4 ml Systolic Pressure: 133.0 mmHg TAPSE: 2.22 cm TR max P.1 mmHg TR max sherry: 229.9 cm/sec TV max P.1 mmHg Weight (metric): 74.0 kg EDV(MOD-sp2): 70.0 ml EF Mod BP: 63.1 % ESV(MOD-sp2): 35.0 ml EF(MOD-sp2): 50.1 % EF(sp-el): 56.5 % Nitin Spencer MD 07/26/2024, 4: 52 PM Ordering Physician: Olena Puga Referring Physician: Alexis Mello Performed By: Stephany Soto RDCS
[2024-07-26] MEDS ORDERED: ATORVASTATIN 40 MG TABLET PO SCH (21:00)
== END 2024-07-26 14:25 | disposition home or self-care (01) ==
LOC: ED 20:16 → MS2 20:16
PROVIDERS: ADMIT Internal Medicine; ATTEND Internal Medicine
DX: E87.1 Hypo-osmolality and hyponatremia; E03.9 Hypothyroidism, unspecified; G45.9 Transient cerebral ischemic attack, unspecified